=== PATIENT | female | born 1985 | race American Indian/Alaskan Native ===

== ENCOUNTER 2017-10-09 14:02 | Emergency (ER) | payer OTHER ==
[2017-10-09 14:14] VITALS: BP 117/72
[2017-10-09 15:25] LABS: Bacteria,Urine 1+ /HPF (Negative); Bilirubin,Urine NEG (Negative); Blood,Urine NEG (Negative); Color,Urine Yellow (Yellow); Protein,Urine <15 mg/dL mg/dL (Negative); Urobilinogen,Urine < 2.0 mg/dL (<2.0)
--- NOTE | 2017-10-09 15:27 | Emergency Department Report ---
ED General Adult HPI - General Chief complaint: Back Pain/Injury Stated complaint: LOWER BACK AND STOMACH CRAMPS Time Seen by Provider: 10/09/17 15:07 Source: patient Mode of arrival: Ambulatory Limitations: No Limitations - History of Present Illness Initial comments: This is a 32-year-old female presents to emergency room complaining of lower back pain which she's had in the past but says it's worse today. She is also complaining of lower abdominal cramping and she reports that she's had this in the past that her site which she had a a year 8 years ago. She said pain is been ongoing for 3-4 weeks. She doesn't have a primary care physician. No medication taken. Pain is 9 out of 10 to a abdomen and back and feels sore. No alleviating or exacerbating factor. Denies any nausea vomiting or fever or chills. Denies any numbness or team into extremities or any trauma. Denies any urinary burning, frequency or urgency. MD Complaint: lower back pain and lower abdominal cramping Onset/Timin -: week(s) Location: back, abdomen Radiation: non-radiation Severity scale (0 -10): 9 Quality: other (sore) Consistency: intermittent Improves with: none Worsens with: none Associated Symptoms: denies: confusion, chest pain, cough, diaphoresis, fever/ chills, headaches, loss of appetite, malaise, nausea/vomiting, rash, seizure, shortness of breath, syncope, weakness Treatments Prior to Arrival: none - Related Data Previous Rx's Medication Instructions Recorded Last Taken Type Brompheniramine/Pseudoephed/Dm 10 ml PO Q6H #120 syrup 06/04/15 Unknown Rx [Bromfed Dm Cough Syrup] Fluticasone [Flonase] 1 spray NS QDAY #1 bottle 06/04/15 Unknown Rx Ranitidine HCl [Zantac 150 MG TAB] 150 mg PO BID #60 tablet 07/15/15 Unknown Rx Ibuprofen [Motrin 800 MG tab] 800 mg PO Q8HR PRN #15 tablet 10/09/17 Unknown Rx Nitrofurantoin [place]/M-Cryst 100 mg PO Q12HR 7 Days #14 capsule 10/09/17 Unknown Rx [Macrobid CAP] Allergies Allergy/AdvReac Type Severity Reaction Status Date / Time No Known Allergies Allergy Verified 06/04/15 09:46 ED Review of Systems ROS: Stated complaint: LOWER BACK AND STOMACH CRAMPS Other details as noted in HPI Constitutional: denies: chills, fever Eyes: denies: eye pain, eye discharge, vision change Respiratory: denies: cough, shortness of breath, SOB with exertion, SOB at rest , wheezing Cardiovascular: denies: chest pain, palpitations, edema, syncope Gastrointestinal: abdominal pain. denies: nausea, vomiting, diarrhea, constipation, hematemesis, hematochezia Genitourinary: denies: urgency, dysuria, frequency, hematuria, discharge, dyspareunia Musculoskeletal: back pain. denies: joint swelling, arthralgia Skin: denies: rash, lesions Neurological: denies: headache, weakness, numbness, paresthesias, confusion, abnormal gait, vertigo ED Past Medical Hx - Past Medical History Previous Medical History?: Yes Hx Headaches / Migraines: Yes Hx Asthma: Yes Additional medical history: Anemia, morbid obesity - Surgical History Past Surgical History?: Yes Additional Surgical History: C-Sections x 5, Tubaligation - Family History Family history: hypertension - Social History Smoking Status: Never Smoker Substance Use Type: None - Medications Home Medications: Home Medications Medication Instructions Recorded Confirmed Last Taken Type Brompheniramine/Pseudoephed/Dm 10 ml PO Q6H #120 syrup 06/04/15 Unknown Rx [Bromfed Dm Cough Syrup] Fluticasone [Flonase] 1 spray NS QDAY #1 bottle 06/04/15 Unknown Rx Ranitidine HCl [Zantac 150 MG TAB] 150 mg PO BID #60 tablet 07/15/15 Unknown Rx Ibuprofen [Motrin 800 MG tab] 800 mg PO Q8HR PRN #15 tablet 10/09/17 Unknown Rx Nitrofurantoin [place]/M-Cryst 100 mg PO Q12HR 7 Days #14 capsule 10/09/17 Unknown Rx [Macrobid CAP] ED Physical Exam - General Limitations: No Limitations General appearance: alert, in no apparent distress - Head Head exam: Present: atraumatic, normocephalic, normal inspection - Eye Eye exam: Present: normal appearance, PERRL, EOMI Pupils: Present: normal accommodation - ENT ENT exam: Present: normal exam, normal orophraynx, mucous membranes moist - Neck Neck exam: Present: normal inspection, full ROM, other (no C-spine tenderness). Absent: tenderness, lymphadenopathy - Respiratory Respiratory exam: Present: normal lung sounds bilaterally. Absent: respiratory distress, chest wall tenderness - Cardiovascular Cardiovascular Exam: Present: regular rate, normal rhythm, normal heart sounds. Absent: systolic murmur, diastolic murmur - GI/Abdominal GI/Abdominal exam: Present: soft, normal bowel sounds, other (patient have scarred to suprapubic area that is healed without any signs of infection from previous .). Absent: distended, tenderness, guarding, rebound, rigid, organomegaly, mass, bruit, pulsatile mass, hernia - Extremities Exam Extremities exam: Present: normal inspection, full ROM, normal capillary refill , other (no clubbing, cyanosis or edema. Positive pulses all extremities and no neurovascular compromise). Absent: tenderness, pedal edema, joint swelling, calf tenderness - Back Exam Back exam: Present: normal inspection, full ROM, other (ambulates of any difficulties). Absent: tenderness, CVA tenderness (R), CVA tenderness (L), muscle spasm, paraspinal tenderness, vertebral tenderness, rash noted - Expanded Back Exam Expanded Back exam: Absent: saddle anesthesia Back exam: Negative Straight Leg Raising: Left, Right - Neurological Exam Neurological exam: Present: alert, oriented X3, normal gait, reflexes normal. Absent: motor sensory deficit - Expanded Neurological Exam Expanded Neurological exam: Absent: innattentive, memory loss-remote event, memory loss- recent event, ataxia, receptive aphasia, expressive aphasia, total aphasia, tremor, protecting the airway Patient oriented to: Present: person, place, time Speech: Present: fluid speech Cranial nerves: EOM's Intact: Normal, Gag Reflex: Normal, Tongue Deviation: Normal, Nystagmus: Normal, Facial Sensation: Normal Cerebellar function: Romberg: Normal Upper motor neuron: Pronator Drift: Normal, Sensory Extinction: Normal Sensory exam: Lower Extremity Light Touch: Normal, Lower Extremity Pin Prick: Normal, Lower Extremity Temperature: Normal, LE 2 Point Discrimination: Normal Motor strength exam: RUE: 5, LUE: 5, RLE: 5, LLE: 5 Best Eye Response (Emily): (4) open spontaneously Best Motor Response ([place]): (6) obeys commands Best Verbal Response (Emily): (5) oriented [place] Total: 15 - Psychiatric Psychiatric exam: Present: normal affect, normal mood - Skin Skin exam: Present: warm, dry, intact, normal color. Absent: rash ED Course Vital Signs 10/09/17 14:10 Temperature 98.5 F Pulse Rate 84 Blood Pressure 117/72 O2 Sat by Pulse 98 Oximetry - Reevaluation(s) Reevaluation #1: 10/09/17 15:30 Patient given Motrin 800 mg by mouth for back pain and awaiting urinalysis and urine test. Reevaluation #2: 10/09/17 16:24 She voiced relief of pain after Motrin. ED Medical Decision Making - Lab Data Lab Results 10/09/17 Range/Units 14:45 Urine Color Yellow (Yellow) Urine Turbidity Clear (Clear) Urine pH 6.0 (5.0-7.0) Ur Specific [place] 1.014 (1.003-1.030) Urine Protein <15 mg/dl (Negative) mg/dL Urine Glucose (UA) Neg (Negative) mg/dL Urine Ketones Neg (Negative) mg/dL Urine Blood Neg (Negative) Urine Nitrite Neg (Negative) Urine Bilirubin Neg (Negative) Urine Urobilinogen < 2.0 (<2.0) mg/dL Ur Leukocyte Esterase Sm (Negative) Urine WBC (Auto) 4.0 (0.0-6.0) /HPF Urine RBC (Auto) 4.0 (0.0-6.0) /HPF U Epithel Cells (Auto) 1.0 (0-13.0) /HPF Urine Bacteria (Auto) 1+ (Negative) /HPF Urine HCG, Qual Negative (Negative) Urine culture sent and pending - Medical Decision Making Patient has been evaluated by this provider in fast track and the signs have normal exam to include back and abdomen. She has scar from 8 years ago which does not show any sign of infection. Patient was given ibuprofen for the pain to lower back and abdomen and she forcibly from pain.. urinalysis showed small amount of leukocyte esterase with bacteria. Urine culture sent. urine test negative A/P 1: Acute Cystitis without hematuria-UA positive leukocyte esterase and bacteria. Patient will be started on Macrobid 2: Acute lower back pain-patient given Motrin 800 mg by mouth in emergency room initially with her pain. We will send home and Motrin. 3-lower abdominal pain-relieved. test negative Patient educated on diagnosis, medication, treatment plan and to follow up with primary care physician. She was understanding. Patient discharged home in stable condition with prescriptions for Motrin and Macrobid and to follow up with her primary care physician in 4 days. I discussed very for her condition worsens to return to emergency room and she voiced understanding. Vital signs are stable she is afebrile and she reports that she is feeling better. Pain is controlled. Critical care attestation.: If time is entered above; I have spent that time in minutes in the direct care of this critically ill patient, excluding procedure time. ED Disposition Clinical Impression: Acute cystitis without hematuria, Bilateral lower abdominal cramping Pain in lower back Qualifiers: Chronicity: acute Back pain laterality: bilateral Sciatica presence: without sciatica Qualified Code(s): M54.5 - Low back pain Disposition: - TO HOME OR SELFCARE Is pt being admited?: No Does the pt Need Aspirin: No Condition: Stable Instructions: Acute Abdominal Pain (ED), Acute Low Back Pain (ED), Urinary Tract Infection in Women (ED) Additional Instructions: Please increase fluid intake to 2-3 L of water or cranberry juice daily The medication as prescribed Take Motrin as food to prevent irritation to stomach lining Follow-up with primary care physician and 4 days Return to the emergency room, if his symptoms worsen Prescriptions: Ibuprofen [Motrin 800 MG tab] 800 mg PO Q8HR PRN #15 tablet PRN Reason: pain Nitrofurantoin [place]/M-Cryst [Macrobid CAP] 100 mg PO Q12HR 7 Days #14 capsule Referrals: [facility] [Outside] - 10/13/17 Forms: Work/School Release Form(ED)
[2017-10-09] MEDS ORDERED: MOTRIN PO ONE (15:29)
[2017-10-09 15:33] LABS: HCG Qualitative,Urine Negative (Negative)
== END 2017-10-09 16:40 | disposition home or self-care (01) ==
LOC: ED 14:02
DX: N30.00 Acute cystitis without hematuria (principal); G43.909 Migraine, unspecified, not intractable, without status migrainosus; J45.909 Unspecified asthma, uncomplicated; E66.01 Morbid (severe) obesity due to excess calories; Z86.2 Personal history of diseases of the blood and blood-forming organs and certain disorders involving the immune mechanism; Z98.51 Tubal ligation status; Z68.43 Body mass index [BMI] 50.0-59.9, adult; Z79.899 Other long term (current) drug therapy
CPT/HCPCS: 81001; 81025; 87086; 99283

== ENCOUNTER 2018-12-05 00:47 | Emergency (ER) | payer SELFPAY ==
[2018-12-05 00:53] VITALS: BP 133/88
[2018-12-05] MEDS ORDERED: DELTASONE PO ONE (02:30)
[2018-12-05] MEDS ORDERED: IBUPROFEN PO ONE (02:30)
--- NOTE | 2018-12-05 02:38 | Emergency Department Report ---
- General Chief Complaint: Upper Respiratory Infection Stated Complaint: COLD SYMPTOMS, BODY ACHES Time Seen by Provider: 12/05/18 02:32 Source: patient Mode of arrival: Ambulatory Limitations: No Limitations - History of Present Illness Initial Comments: Patient is a 33 yo AA female with no past medical history who presents to the ED with c/o acute onset persistent sore throat, dysphagia, nasal and sinus congestion, dry cough and diffuse body aches x 1 week, worse in the last 2 days. Patient states that she has been taking OTC remedies with no relief. Patient denies dyspnea, nausea, vomiting, dizziness, chest pain, headache, abdominal pain, fever and chills, diarrhea and back pain or dysuria. MD Complaint: cough, sore throat, rhinorrhea, nasal congestion, sinus pain -: Sudden, days(s) (3) Severity: severe Severity scale (0 -10): 7 Quality: sharp, aching Consistency: constant Improves With: nothing Worsens With: nothing Context: sick contacts Associated Symptoms: denies other symptoms, myalgias, headache, rhinorrhea, nasal congestion, sore throat, cough. denies: fever, stiff neck, chest pain, shortness of breath, abdominal pain, nausea, vomiting, diarrhea, dysuria, rash, confusion, weight loss, epistaxis, hoarseness, ear pain, other - Related Data Previous Rx's Medication Instructions Recorded Last Taken Type Brompheniramine/Pseudoephed/Dm 10 ml PO Q6H #120 syrup 06/04/15 Unknown Rx [Bromfed Dm Cough Syrup] Fluticasone [Flonase] 1 spray NS QDAY #1 bottle 06/04/15 Unknown Rx raNITIdine HCl [Zantac 150 MG TAB] 150 mg PO BID #60 tablet 07/15/15 Unknown Rx Ibuprofen [Motrin 800 MG tab] 800 mg PO Q8HR PRN #15 tablet 10/09/17 Unknown Rx Nitrofurantoin [place]/M-Cryst 100 mg PO Q12HR 7 Days #14 capsule 10/09/17 Unknown Rx [Macrobid CAP] Amoxicillin [Trimox CAP] 500 mg PO Q8H #30 capsule 12/05/18 Unknown Rx Benzonatate [Tessalon Perles] 100 mg PO Q8HR #30 capsule 12/05/18 Unknown Rx Cetirizine HCl [Zyrtec 10mg tab] 10 mg PO DAILY #30 tablet 12/05/18 Unknown Rx Ibuprofen [Motrin] 800 mg PO Q8HR PRN #24 tablet 12/05/18 Unknown Rx methylPREDNISolone [Medrol 4MG 4 mg PO DAILY #21 tab.ds.pk 12/05/18 Unknown Rx DOSEPAK (21 tabs)] Allergies Allergy/AdvReac Type Severity Reaction Status Date / Time No Known Allergies Allergy Verified 06/04/15 09:46 ED Review of Systems ROS: Stated complaint: COLD SYMPTOMS, BODY ACHES Other details as noted in HPI Constitutional: denies: chills, fever Eyes: denies: eye pain, eye discharge, vision change ENT: throat pain, congestion, other (frontal sinus pressure). denies: ear pain Respiratory: cough. denies: shortness of breath, wheezing Cardiovascular: denies: chest pain, palpitations Endocrine: no symptoms reported Gastrointestinal: denies: abdominal pain, nausea, diarrhea Genitourinary: denies: urgency, dysuria, discharge Musculoskeletal: arthralgia, myalgia. denies: joint swelling Skin: denies: rash, lesions Neurological: headache. denies: weakness, paresthesias Psychiatric: denies: anxiety, depression Hematological/Lymphatic: denies: easy bleeding, easy bruising ED Past Medical Hx - Past Medical History Hx Headaches / Migraines: Yes Hx Asthma: Yes Additional medical history: Anemia, morbid obesity - Surgical History Past Surgical History?: Yes Additional Surgical History: C-Sections x 5, Tubaligation - Social History Smoking Status: Never Smoker Substance Use Type: None - Medications Home Medications: Home Medications Medication Instructions Recorded Confirmed Last Taken Type Brompheniramine/Pseudoephed/Dm 10 ml PO Q6H #120 syrup 06/04/15 Unknown Rx [Bromfed Dm Cough Syrup] Fluticasone [Flonase] 1 spray NS QDAY #1 bottle 06/04/15 Unknown Rx raNITIdine HCl [Zantac 150 MG TAB] 150 mg PO BID #60 tablet 07/15/15 Unknown Rx Ibuprofen [Motrin 800 MG tab] 800 mg PO Q8HR PRN #15 tablet 10/09/17 Unknown Rx Nitrofurantoin [place]/M-Cryst 100 mg PO Q12HR 7 Days #14 capsule 10/09/17 Unknown Rx [Macrobid CAP] Amoxicillin [Trimox CAP] 500 mg PO Q8H #30 capsule 12/05/18 Unknown Rx Benzonatate [Tessalon Perles] 100 mg PO Q8HR #30 capsule 12/05/18 Unknown Rx Cetirizine HCl [Zyrtec 10mg tab] 10 mg PO DAILY #30 tablet 12/05/18 Unknown Rx Ibuprofen [Motrin] 800 mg PO Q8HR PRN #24 tablet 12/05/18 Unknown Rx methylPREDNISolone [Medrol 4MG 4 mg PO DAILY #21 tab.ds.pk 12/05/18 Unknown Rx DOSEPAK (21 tabs)] ED Physical Exam - General Limitations: No Limitations General appearance: alert, in no apparent distress - Head Head exam: Present: atraumatic, normocephalic, normal inspection - Eye Eye exam: Present: normal appearance, PERRL, EOMI Pupils: Present: normal accommodation - ENT ENT exam: Present: normal exam, mucous membranes moist, TM's normal bilaterally, normal external ear exam, other (Grossly congested nasal passages; Palpable frontal sinus tenderness; erythematous oropharynx) - Neck Neck exam: Present: normal inspection, full ROM, lymphadenopathy. Absent: tenderness, meningismus, thyromegaly - Respiratory Respiratory exam: Present: normal lung sounds bilaterally. Absent: respiratory distress, wheezes, rales, rhonchi, stridor, chest wall tenderness, accessory muscle use, decreased breath sounds, prolonged expiratory - Cardiovascular Cardiovascular Exam: Present: regular rate, normal rhythm, normal heart sounds. Absent: systolic murmur, diastolic murmur, rubs, gallop - GI/Abdominal GI/Abdominal exam: Present: soft, normal bowel sounds. Absent: tenderness, guarding, rebound, hyperactive bowel sounds, hypoactive bowel sounds, organomegaly - Rectal Rectal exam: Present: deferred - Extremities Exam Extremities exam: Present: normal inspection, full ROM, normal capillary refill - Back Exam Back exam: Present: normal inspection, full ROM. Absent: tenderness, CVA tenderness (R), CVA tenderness (L), muscle spasm, paraspinal tenderness - Neurological Exam Neurological exam: Present: alert, oriented X3, CN II-XII intact, normal gait, reflexes normal - Psychiatric Psychiatric exam: Present: normal affect, normal mood - Skin Skin exam: Present: warm, dry, intact, normal color. Absent: rash ED Course Vital Signs 12/05/18 00:51 Temperature 98.5 F Pulse Rate 86 Respiratory 20 Rate Blood Pressure 133/88 O2 Sat by Pulse 98 Oximetry - Reevaluation(s) Reevaluation #1: 12/05/18 02:40. 33-year-old female who presents to ED with nasal and sinus congestion, frontal sinus pressure and headache and sore throat with dry cough and diffuse body aches and pains for the last 3 days. In the ED, patient is alert and oriented 3 and is not in distress. Vital signs are stable. Physical exam reveals frontal sinus tenderness, erythematous oropharynx and was congested nasal passages. Patient was treated for pain in the ED and was discharged home on medications and advised to follow-up with her primary care physician in 7-10 days for reevaluation or return to the ED immediately if symptoms get worse. ED Medical Decision Making - Medical Decision Making 33-year-old female who presents to ED with nasal and sinus congestion, frontal sinus pressure and headache and sore throat with dry cough and diffuse body aches and pains for the last 3 days. In the ED, patient is alert and oriented 3 and is not in distress. Vital signs are stable. Physical exam reveals frontal sinus tenderness, erythematous oropharynx and was congested nasal passages. Patient was treated for pain in the ED and was discharged home on medications and advised to follow-up with her primary care physician in 7-10 days for reevaluation or return to the ED immediately if symptoms get worse. - Differential Diagnosis Acute URI; Pharyngitis; Sinusitis; Acute bronchitis Critical care attestation.: If time is entered above; I have spent that time in minutes in the direct care of this critically ill patient, excluding procedure time. ED Disposition Clinical Impression: Acute upper respiratory infection Acute pharyngitis Qualifiers: Pharyngitis/tonsillitis etiology: other specified organisms Qualified Code(s): J02.8 - Acute pharyngitis due to other specified organisms Acute frontal sinusitis Qualifiers: Recurrence: non-recurrent Qualified Code(s): J01.10 - Acute frontal sinusitis, unspecified Acute bronchitis Qualifiers: Bronchitis organism: other organism Qualified Code(s): J20.8 - Acute bronchitis due to other specified organisms Disposition: - TO HOME OR SELFCARE Is pt being admited?: No Does the pt Need Aspirin: No Condition: Stable Instructions: Acute Bronchitis (ED), Acute Bacterial Rhinosinusitis (ED), Pharyngitis (ED), Upper Respiratory Infection (ED) Additional Instructions: Take medications with food, drink plenty of fluids and follow-up with your primary care physician in 5-7 days for reevaluation. Return to the ED immediately if symptoms get worse. Prescriptions: methylPREDNISolone [Medrol 4MG DOSEPAK (21 tabs)] 4 mg PO DAILY #21 tab.ds.pk Ibuprofen [Motrin] 800 mg PO Q8HR PRN #24 tablet PRN Reason: Pain , Severe (7-10) Benzonatate [Tessalon Perles] 100 mg PO Q8HR #30 capsule Amoxicillin [Trimox CAP] 500 mg PO Q8H #30 capsule Cetirizine HCl [Zyrtec 10mg tab] 10 mg PO DAILY #30 tablet Referrals: [facility] [Outside] - 3-5 Days Time of Disposition: 02:44 Print Language: FRENCH
== END 2018-12-05 04:07 | disposition home or self-care (01) ==
LOC: ED 00:47
DX: J02.9 Acute pharyngitis, unspecified (principal); J01.10 Acute frontal sinusitis, unspecified; J20.9 Acute bronchitis, unspecified; G43.909 Migraine, unspecified, not intractable, without status migrainosus; J45.909 Unspecified asthma, uncomplicated; E66.01 Morbid (severe) obesity due to excess calories; Z68.43 Body mass index [BMI] 50.0-59.9, adult; Z86.2 Personal history of diseases of the blood and blood-forming organs and certain disorders involving the immune mechanism; Z98.51 Tubal ligation status; Z79.899 Other long term (current) drug therapy; Z79.1 Long term (current) use of non-steroidal anti-inflammatories (NSAID)
CPT/HCPCS: 99282; J7512

== ENCOUNTER 2019-06-10 18:13 | Emergency (ER) | payer SELFPAY ==
--- NOTE | 2019-06-10 22:02 | Emergency Department Report ---
Blank Doc - Documentation Documentation: 34-year-old female that presents with chest pain and SOB. This initial assessment/diagnostic orders/clinical plan/treatment(s) is/are subject to change based on patient's health status, clinical progression and re- assessment by fellow clinical providers in the ED. Further treatment and workup at subsequent clinical providers discretion. Patient/guardians urged not to elope from the ED as their condition may be serious if not clinically assessed and managed. Initial orders include: 1- Patient sent to [facility] for further evaluation and treatment 2- ekg 3- cXR
--- NOTE | 2019-06-10 22:50 | XRay Report ---
CHEST 2 VIEWS INDICATION / CLINICAL INFORMATION: Chest pain. Headache. Shortness of breath. Cough. COMPARISON: Acute abdominal series from 11/13/2014. FINDINGS: SUPPORT DEVICES: None. HEART / MEDIASTINUM: No significant abnormality. LUNGS / PLEURA: No significant pulmonary or pleural abnormality. No pneumothorax. ADDITIONAL FINDINGS: No significant additional findings. IMPRESSION: 1. No acute abnormality of the chest. Signer Name: Benjamin Perera MD Signed: 06/10/2019 10:45 PM Workstation Name: [id number]
--- NOTE | 2019-06-10 23:33 | Emergency Department Report ---
ED Shortness of Breath HPI - General Chief Complaint: Dyspnea/Respdistress Stated Complaint: CP/HEADACHE/ Time Seen by Provider: 06/10/19 22:02 Source: patient Mode of arrival: Ambulatory Limitations: No Limitations - History of Present Illness Initial Comments: 34-year-old female with history of asthma presents to ED with complaint of chest pain for several months, and cough and shortness of breath x6 days. Patient reports dry cough. Denies wheezing. Denies chest pain at this time. Patient also denies fever, exposure to known COVID positive patients, or recent travel. Patient does report her daughters have been sick with URI symptoms. However they have also not traveled or been exposed to any known COVID positive patients. Patient denies leg pain or swelling. MD Complaint: shortness of breath, cough -: days(s) (6) Severity: mild Consistency: intermittent Improves With: nothing Worsens With: nothing Known History Of: asthma Associated Symptoms: cough Treatments Prior to Arrival: other (OTC meds) - Related Data Previous Rx's Medication Instructions Recorded Last Taken Type Brompheniramine/Pseudoephed/Dm 10 ml PO Q6H #120 syrup 06/04/15 Unknown Rx [Bromfed Dm Cough Syrup] Fluticasone [Flonase] 1 spray NS QDAY #1 bottle 06/04/15 Unknown Rx raNITIdine HCl [Zantac 150 MG TAB] 150 mg PO BID #60 tablet 07/15/15 Unknown Rx Ibuprofen [Motrin 800 MG tab] 800 mg PO Q8HR PRN #15 tablet 10/09/17 Unknown Rx Nitrofurantoin Mower/M-Cryst 100 mg PO Q12HR 7 Days #14 capsule 10/09/17 Unknown Rx [Macrobid CAP] Amoxicillin [Trimox CAP] 500 mg PO Q8H #30 capsule 12/05/18 Unknown Rx Benzonatate [Tessalon Perles] 100 mg PO Q8HR #30 capsule 12/05/18 Unknown Rx Cetirizine HCl [Zyrtec 10mg tab] 10 mg PO DAILY #30 tablet 12/05/18 Unknown Rx Ibuprofen [Motrin] 800 mg PO Q8HR PRN #24 tablet 12/05/18 Unknown Rx methylPREDNISolone [Medrol 4MG 4 mg PO DAILY #21 tab.ds.pk 12/05/18 Unknown Rx DOSEPAK (21 tabs)] Albuterol Sulfate [Proventil Hfa] 2 puff IH Q4HR PRN #1 hfa.aer.ad 06/10/19 Unknown Rx Benzonatate [Tessalon Perles] 100 mg PO Q8HR PRN #20 capsule 06/10/19 Unknown Rx Allergies Allergy/AdvReac Type Severity Reaction Status Date / Time No Known Allergies Allergy Verified 06/04/15 09:46 ED Review of Systems ROS: Stated complaint: CP/HEADACHE/ Other details as noted in HPI Comment: All other systems reviewed and negative Constitutional: denies: chills, fever ENT: denies: throat pain Respiratory: cough, shortness of breath Cardiovascular: chest pain Gastrointestinal: denies: nausea, vomiting Musculoskeletal: other (denies leg pain or swelling) ED Past Medical Hx - Past Medical History Previous Medical History?: Yes Hx Headaches / Migraines: Yes Hx Asthma: Yes Additional medical history: Anemia, morbid obesity - Surgical History Past Surgical History?: Yes Additional Surgical History: C-Sections x 5, Tubaligation - Social History Smoking Status: Never Smoker Substance Use Type: None - Medications Home Medications: Home Medications Medication Instructions Recorded Confirmed Last Taken Type Brompheniramine/Pseudoephed/Dm 10 ml PO Q6H #120 syrup 06/04/15 Unknown Rx [Bromfed Dm Cough Syrup] Fluticasone [Flonase] 1 spray NS QDAY #1 bottle 06/04/15 Unknown Rx raNITIdine HCl [Zantac 150 MG TAB] 150 mg PO BID #60 tablet 07/15/15 Unknown Rx Ibuprofen [Motrin 800 MG tab] 800 mg PO Q8HR PRN #15 tablet 10/09/17 Unknown Rx Nitrofurantoin Mower/M-Cryst 100 mg PO Q12HR 7 Days #14 capsule 10/09/17 Unknown Rx [Macrobid CAP] Amoxicillin [Trimox CAP] 500 mg PO Q8H #30 capsule 12/05/18 Unknown Rx Benzonatate [Tessalon Perles] 100 mg PO Q8HR #30 capsule 12/05/18 Unknown Rx Cetirizine HCl [Zyrtec 10mg tab] 10 mg PO DAILY #30 tablet 12/05/18 Unknown Rx Ibuprofen [Motrin] 800 mg PO Q8HR PRN #24 tablet 12/05/18 Unknown Rx methylPREDNISolone [Medrol 4MG 4 mg PO DAILY #21 tab.ds.pk 12/05/18 Unknown Rx DOSEPAK (21 tabs)] Albuterol Sulfate [Proventil Hfa] 2 puff IH Q4HR PRN #1 hfa.aer.ad 06/10/19 Unknown Rx Benzonatate [Tessalon Perles] 100 mg PO Q8HR PRN #20 capsule 06/10/19 Unknown Rx ED Physical Exam - General Limitations: No Limitations ED Course Vital Signs 06/10/19 06/10/19 19:18 23:40 Temperature 98.9 F 97.9 F Pulse Rate 77 79 Respiratory 20 14 Rate Blood Pressure 142/76 Blood Pressure 109/75 [Left] O2 Sat by Pulse 97 Oximetry ED Medical Decision Making - EKG Data -: EKG Interpreted by [place] EKG shows normal: sinus rhythm, axis, intervals, QRS complexes, ST-T waves Rate: normal - EKG Data Interpretation: no acute changes - Radiology Data Radiology results: report reviewed, image reviewed - Medical Decision Making - pt afebrile; remainder of vitals normal - CXR unremarkable - no resp distress, O2 sats normal - will d/c home - outpt f/u advised - Differential Diagnosis CHF, URI, ACS, pneumonia Critical care attestation.: If time is entered above; I have spent that time in minutes in the direct care of this critically ill patient, excluding procedure time. ED Disposition Clinical Impression: Chest pain, Cough Disposition: DC-01 TO HOME OR SELFCARE Is pt being admited?: No Condition: Stable Instructions: Chest Pain (ED), Upper Respiratory Infection (ED) Prescriptions: Albuterol Sulfate [Proventil Hfa] 2 puff IH Q4HR PRN #1 hfa.aer.ad PRN Reason: Wheezing Benzonatate [Tessalon Perles] 100 mg PO Q8HR PRN #20 capsule PRN Reason: Cough Referrals: PRIMARY CARE, [Primary Care Provider] - 3-5 Days [facility] [Provider Group] - 3-5 Days Forms: Work/School Release Form(ED) Time of Disposition: 23:36
[2019-06-11 01:09] VITALS: BP 109/75
== END 2019-06-11 | disposition home or self-care (01) ==
LOC: ED 18:13
DX: R07.89 Other chest pain (principal); R05 Cough
CPT/HCPCS: 71046; 93005; 93010; 99283

== ENCOUNTER 2020-12-27 11:00 | Emergency (ER) | payer OTHER ==
[2020-12-27 11:19] VITALS: BP 128/69
[2020-12-27] MEDS ORDERED: BUTALB/ACETAMINOPHEN/CAFFEINE TAB PO ONE (14:12)
--- NOTE | 2020-12-27 14:13 | Emergency Department Report ---
ED Headache HPI - General Chief Complaint: Headache Stated Complaint: HEADACHE X 2 MONTHS Time Seen by Provider: 12/27/20 13:53 Source: patient, old records Exam Limitations: no limitations - History of Present Illness Initial Comments: 35-year-old female with a past medical history of asthma and a history of obesity presents to the ER today with complaints of headache. Patient reports that she been having a diffuse headache daily which she has been having for the past 2 months. She states that it has been a constant pain and she describes it as sharp. She states that light seems to make the headache worse, but she does get relief of the headache when she takes Advil PM and goes to sleep at night. Patient states that she has not seen her primary care doctor nor a neurologist for headaches. She denies any recent head injuries. She states that in the past week she has been having associated dizziness and lightheadedness. She describes it as when she moves from a sitting to a standing position while she is driving she gets dizzy and feels like the room is spinning. She also reports feeling generally weak this past week. She denies any nausea, vomiting, neck pain, fever, chills, runny nose, nasal congestion, cough, chest pain, shortness of breath focal weakness, vision change, speech changes or any additional symptoms at this time. OFF NOTE:patient has been seen here for headaches in the past. She had a CT of her head in 2014 which showed ethmoid sinusitis. Timing/Duration: constant, other (Chronic x 2 months ) Quality: constant, sharp Head Injury Location: global Allergies/Adverse Reactions: Allergies No Known Allergies Allergy (Verified 12/27/20 11:19) Home Medications: Ambulatory Orders raNITIdine HCl [Zantac 150 MG TAB] 150 mg PO BID #60 tablet 07/15/15 Albuterol Sulfate [Proventil Hfa] 2 puff IH Q4HR PRN #1 hfa.aer.ad 06/10/19 Butalb/Acetamin/Caff 50-325-40 [Fioricet 50-325-40] 1 each PO Q4H PRN #15 tablet 12/27/20 Fluticasone [Flonase] 2 spray NS QDAY #1 bottle 12/27/20 Loratadine [Claritin] 10 mg PO DAILY #30 tablet 12/27/20 Meclizine [Antivert] 25 mg PO TID PRN #20 tablet 12/27/20 ED Review of Systems ROS: Stated complaint: HEADACHE X 2 MONTHS Other details as noted in HPI Comment: All other systems reviewed and negative Constitutional: denies: chills, fever Eyes: denies: eye pain, eye discharge, vision change ENT: denies: ear pain, throat pain, dental pain, hearing loss, epistaxis, congestion Respiratory: denies: cough, shortness of breath, wheezing Cardiovascular: denies: chest pain, palpitations Gastrointestinal: denies: abdominal pain, nausea, vomiting, diarrhea, constipation, hematemesis, melena, hematochezia Genitourinary: denies: urgency, dysuria, discharge, abnormal menses, dyspareunia Musculoskeletal: denies: back pain, joint swelling, arthralgia Skin: denies: rash, lesions Neurological: headache, weakness, vertigo. denies: numbness, paresthesias, confusion, abnormal gait Psychiatric: denies: anxiety, depression, auditory hallucinations, visual hallucinations, homicidal thoughts, suicidal thoughts Hematological/Lymphatic: denies: easy bleeding, easy bruising, swollen glands ED Past Medical Hx - Past Medical History Hx Headaches / Migraines: Yes Hx Asthma: Yes Additional medical history: Anemia, morbid obesity - Surgical History Additional Surgical History: C-Sections x 5, Tubaligation - Social History Smoking Status: Never Smoker Substance Use Type: None - Medications Home Medications: Home Medications Medication Instructions Recorded Confirmed Last Taken Type raNITIdine HCl [Zantac 150 MG TAB] 150 mg PO BID #60 tablet 07/15/15 Unknown Rx Albuterol Sulfate [Proventil Hfa] 2 puff IH Q4HR PRN #1 hfa.aer.ad 06/10/19 Unknown Rx Butalb/Acetamin/Caff 50-325-40 1 each PO Q4H PRN #15 tablet 12/27/20 Unknown Rx [Fioricet 50-325-40] Fluticasone [Flonase] 2 spray NS QDAY #1 bottle 12/27/20 Unknown Rx Loratadine [Claritin] 10 mg PO DAILY #30 tablet 12/27/20 Unknown Rx Meclizine [Antivert] 25 mg PO TID PRN #20 tablet 12/27/20 Unknown Rx ED Physical Exam - General Limitations: No Limitations General appearance: alert, in no apparent distress, obese - Head Head exam: Present: atraumatic, normocephalic, normal inspection - Eye Eye exam: Present: normal appearance, PERRL, EOMI Pupils: Present: normal accommodation - ENT ENT exam: Present: normal exam, mucous membranes moist, other (Tenderness to palpation to the frontal sinuses bilaterally) - Expanded ENT Exam Expanded TM/Canal exam: Effusion: Right TM, Left TM Mouth exam: Present: normal external inspection Teeth exam: Present: normal inspection - Neck Neck exam: Present: normal inspection, full ROM. Absent: meningismus - Respiratory Respiratory exam: Present: normal lung sounds bilaterally. Absent: respiratory distress, wheezes, rales, rhonchi - Cardiovascular Cardiovascular Exam: Present: regular rate, normal rhythm, normal heart sounds - GI/Abdominal GI/Abdominal exam: Present: soft. Absent: tenderness, guarding, rebound, rigid - Neurological Exam Neurological exam: Present: alert, oriented X3, CN II-XII intact, normal gait. Absent: motor sensory deficit - Psychiatric Psychiatric exam: Present: normal affect, normal mood - Skin Skin exam: Present: intact ED Course Vital Signs 12/27/20 11:18 Temperature 98.9 F Pulse Rate 65 Respiratory 18 Rate Blood Pressure 128/69 [Left] O2 Sat by Pulse 100 Oximetry ED Medical Decision Making - Lab Data Result diagrams: 12/27/20 14:22 12/27/20 14:22 - Medical Decision Making 1705: All labs reviewed and unremarkable. EKG shows no STEMI, ischemic changes or any significant dysrhythmias. Patient currently sitting up in the recliner, on her phone, not in any acute distress. She is not toxic or ill-appearing. She is neurologically intact with a normal gait. She has no meningeal signs on exam.The history, exam, diagnostic testing and the patient's current condition does not suggest meningitis, stroke, sepsis, subarachnoid hemorrhage, intracranial bleeding, encephalitis, PE, unstable angina, CT or other significant pathology to warrant further testing, continued ED treatment, admission, neurological consultation or other specialist evaluation at this point. Patient does have fluid behind the eardrum which could be contributing to her dizziness. She will be prescribed Flonase and antihistamines to help with that, she also be given meclizine to help with her dizziness and Fioricet for headache. I did discuss results with patient, and suspected diagnosis with patient and I did recommend follow-up with neurologist for outpatient MRI for further evaluation of her headaches. Patient expressed understanding of all instructions and agree with plan. Patient stable at time of discharge Critical care attestation.: If time is entered above; I have spent that time in minutes in the direct care of this critically ill patient, excluding procedure time. ED Disposition Clinical Impression: Chronic headache, Vertigo, Eustachian tube dysfunction Disposition: 01 HOME / SELF CARE / HOMELESS Is pt being admited?: No Does the pt Need Aspirin: No Condition: Stable Instructions: Eustachian Tube Dysfunction, General Headache Without Cause, Dizziness, [id number] Additional Instructions: I recommend that you take the Fioricet as prescribed to help with your headache. I also recommend taking the Flonase and using the Zyrtec, to help because you do have some fluid behind the eardrum which can be contributing to your dizziness and also your headache could also be related to sinuses. Take the meclizine as prescribed to help with dizziness. I still do recommend you follow-up with your primary care doctor for referral to neurology for additional evaluation including an MRI to further work-up your headache. Drink lots of fluids. Return to the ER if your symptoms changes or worsens in any way. Prescriptions: Meclizine [Antivert] 25 mg PO TID PRN #20 tablet PRN Reason: Vertigo/dizzy Loratadine [Claritin] 10 mg PO DAILY #30 tablet Butalb/Acetamin/Caff 50-325-40 [Fioricet 50-325-40] 1 each PO Q4H PRN #15 tablet PRN Reason: Headache Fluticasone [Flonase] 2 spray NS QDAY #1 bottle Referrals: [facility] [Provider Group] - 3-5 Days (Primary Care physician ) [facility] [Provider Group] - 3-5 Days ( [address] [place] [address] [address], [place] [address] ) Forms: Work/School Release Form(ED) Time of Disposition: 16:52 Print Language: WELSH
[2020-12-27 14:47] LABS: Hematocrit 33.8 % (30.3-42.9); Hemoglobin 10.7 gm/dl (10.1-14.3); Mean Corpuscular HGB Conc 32 % (30-34); Mean Corpuscular Volume 71 fl (79-97); Platelet Count 278 K/mm3 (140-440); Red Blood Count 4.74 M/mm3 (3.65-5.03)
[2020-12-27 15:10] LABS: Alanine Aminotransferase 10 units/L (7-56); Albumin 3.5 g/dL (3.9-5); Blood Urea Nitrogen 7 mg/dL (7-17); Calcium 9.2 mg/dL (8.4-10.2); Hemolysis Index 0
[2020-12-27 15:16] LABS: BUN/Creatinine Ratio 10
[2020-12-27 16:15] LABS: Bilirubin,Urine NEG (Negative); Blood,Urine NEG (Negative); Color,Urine Yellow (Yellow); Mucus,Urine FEW /HPF; Protein,Urine <15 mg/dL mg/dL (Negative)
[2020-12-27 17:00] LABS: Eosinophils % (Manual) 1.4 % (0.0-4.3); Total Cells Counted 71
[2020-12-27 17:01] LABS: Platelet Estimate Consistent w Auto; RBC Morphology Normal
--- NOTE | 2021-01-01 14:21 | Electrocardiograph Report ---
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
== END 2020-12-27 17:30 | disposition home or self-care (01) ==
LOC: ED 11:00
DX: G89.29 Other chronic pain (principal); G43.909 Migraine, unspecified, not intractable, without status migrainosus; H68.103 Unspecified obstruction of Eustachian tube, bilateral; Z98.51 Tubal ligation status; Z98.890 Other specified postprocedural states; Z86.2 Personal history of diseases of the blood and blood-forming organs and certain disorders involving the immune mechanism; Z79.899 Other long term (current) drug therapy
CPT/HCPCS: 36415; 80053; 81001; 83735; 84703; 85007; 85025; 93005; 99283

== ENCOUNTER 2021-09-04 08:12 | Emergency (ER) | payer SELFPAY ==
[2021-09-04 08:42] VITALS: BP 114/81
--- NOTE | 2021-09-04 11:21 | XRay Report ---
CHEST 2 VIEWS INDICATION / CLINICAL INFORMATION: cough. COMPARISON: 06/10/2019 FINDINGS: SUPPORT DEVICES: None. HEART / MEDIASTINUM: No significant abnormality. LUNGS / PLEURA: No significant pulmonary or pleural abnormality. No pneumothorax. ADDITIONAL FINDINGS: No significant additional findings. IMPRESSION: 1. No acute findings. Signer Name: Demond Johnson MD Signed: 09/04/2021 11:17 AM Workstation Name: [employer]ue App
[2021-09-04] MEDS ORDERED: BENZONATATE 100 MG CAP PO ONE (13:10)
--- NOTE | 2021-09-04 14:02 | Emergency Department Report ---
- General Chief Complaint: Upper Respiratory Infection Stated Complaint: BODY PAIN/CHILLS Time Seen by Provider: 09/04/21 12:17 Source: patient Mode of arrival: Ambulatory Limitations: No Limitations - History of Present Illness Initial Comments: This is a 36-year-old female nontoxic, well nourished in appearance, no acute signs of distress presents to the ED with c/o of productive cough, rhinorrhea, nasal congestion x several days. Patient describes productive cough as yellow mucus production. Patient denies any sick contacts. Patient denies any recent travels, long car, recent hospital stays. Patient denies any calf pain or calf tenderness. Patient denies any chest pain, short of breath, fever, chills, nausea, vomiting, hemoptysis, numbness, tingling, headache or stiff neck. Patient denies any allergies or significant past medical history. MD Complaint: cough, rhinorrhea, nasal congestion -: days(s) Severity scale (0 -10): 0 Improves With: nothing Worsens With: nothing Associated Symptoms: rhinorrhea, nasal congestion, cough. denies: fever, chills, myalgias, diaphoresis, headache, sore throat, stiff neck, chest pain, shortness of breath, abdominal pain, nausea, vomiting, diarrhea, dysuria, rash, confusion, right sweats, weight loss, epistaxis, hoarseness, ear pain Treatments Prior to Arrival: none - Related Data Previous Rx's Medication Instructions Recorded Last Taken Type raNITIdine HCl [Zantac 150 MG TAB] 150 mg PO BID #60 tablet 07/15/15 Unknown Rx Albuterol Sulfate [Proventil Hfa] 2 puff IH Q4HR PRN #1 hfa.aer.ad 06/10/19 Unknown Rx Butalb/Acetamin/Caff 50-325-40 1 each PO Q4H PRN #15 tablet 12/27/20 Unknown Rx [Fioricet 50-325-40] Fluticasone [Flonase] 2 spray NS QDAY #1 bottle 12/27/20 Unknown Rx Loratadine [Claritin] 10 mg PO DAILY #30 tablet 12/27/20 Unknown Rx Meclizine [Antivert] 25 mg PO TID PRN #20 tablet 12/27/20 Unknown Rx Benzonatate [Tessalon Perles] 100 mg PO Q8HR PRN #12 cap 09/04/21 Unknown Rx Allergies Allergy/AdvReac Type Severity Reaction Status Date / Time No Known Allergies Allergy Verified 12/27/20 11:19 ED Review of Systems ROS: Stated complaint: BODY PAIN/CHILLS Other details as noted in HPI Comment: All other systems reviewed and negative Constitutional: denies: chills, fever Eyes: denies: eye pain, eye discharge, vision change ENT: congestion. denies: ear pain, throat pain Respiratory: cough. denies: shortness of breath, wheezing Cardiovascular: denies: chest pain, palpitations Endocrine: no symptoms reported Gastrointestinal: denies: abdominal pain, nausea, diarrhea Genitourinary: denies: urgency, dysuria, discharge Musculoskeletal: denies: back pain, joint swelling, arthralgia Skin: denies: rash, lesions Neurological: denies: headache, weakness, paresthesias Psychiatric: denies: anxiety, depression Hematological/Lymphatic: denies: easy bleeding, easy bruising ED Past Medical Hx - Past Medical History Hx Headaches / Migraines: Yes Hx Asthma: Yes Additional medical history: Anemia, morbid obesity - Surgical History Additional Surgical History: C-Sections x 5, Tubaligation - Social History Smoking Status: Never Smoker Substance Use Type: None - Medications Home Medications: Home Medications Medication Instructions Recorded Confirmed Last Taken Type raNITIdine HCl [Zantac 150 MG TAB] 150 mg PO BID #60 tablet 07/15/15 Unknown Rx Albuterol Sulfate [Proventil Hfa] 2 puff IH Q4HR PRN #1 hfa.aer.ad 06/10/19 Unknown Rx Butalb/Acetamin/Caff 50-325-40 1 each PO Q4H PRN #15 tablet 12/27/20 Unknown Rx [Fioricet 50-325-40] Fluticasone [Flonase] 2 spray NS QDAY #1 bottle 12/27/20 Unknown Rx Loratadine [Claritin] 10 mg PO DAILY #30 tablet 12/27/20 Unknown Rx Meclizine [Antivert] 25 mg PO TID PRN #20 tablet 12/27/20 Unknown Rx Benzonatate [Tessalon Perles] 100 mg PO Q8HR PRN #12 cap 09/04/21 Unknown Rx ED Physical Exam - General Limitations: No Limitations General appearance: alert, in no apparent distress - Head Head exam: Present: atraumatic, normocephalic - Eye Eye exam: Present: normal appearance - ENT ENT exam: Present: normal exam, normal orophraynx - Neck Neck exam: Present: normal inspection, full ROM. Absent: tenderness, meningismus, lymphadenopathy - Respiratory Respiratory exam: Present: normal lung sounds bilaterally. Absent: respiratory distress, wheezes, rales, rhonchi, stridor, chest wall tenderness, accessory muscle use, decreased breath sounds, prolonged expiratory - Cardiovascular Cardiovascular Exam: Present: regular rate, normal rhythm, normal heart sounds. Absent: bradycardia, tachycardia, irregular rhythm, systolic murmur, diastolic murmur, rubs, gallop - Extremities Exam Extremities exam: Present: full ROM - Back Exam Back exam: Present: full ROM - Neurological Exam Neurological exam: Present: alert, oriented X3, normal gait - Psychiatric Psychiatric exam: Present: normal affect, normal mood - Skin Skin exam: Present: warm, dry, intact, normal color. Absent: rash ED Course Vital Signs 09/04/21 08:39 Temperature 98.3 F Pulse Rate 89 Respiratory 16 Rate Blood Pressure 114/81 [Left] O2 Sat by Pulse 94 Oximetry - Reevaluation(s) Reevaluation #1: 09/04/21 13:59 Patient is speaking in full sentences with no signs of distress noted. ED Medical Decision Making - Radiology Data [address] [address] XRay Report Signed Patient: RAMÓN MISTRY MR#: [id number] : 1985 Acct:[id number] Age/Sex: 36 / F ADM Date: 09/04/21 Loc: ED Attending Dr: Ordering Physician: RIP RED Date of Service: 09/04/21 Procedure(s): XR chest routine 2V Accession Number(s): [id number] cc: RIP RED Fluoro Time In Minutes: CHEST 2 VIEWS INDICATION / CLINICAL INFORMATION: cough. COMPARISON: 06/10/2019 FINDINGS: SUPPORT DEVICES: None. HEART / MEDIASTINUM: No significant abnormality. LUNGS / PLEURA: No significant pulmonary or pleural abnormality. No pneumothorax. ADDITIONAL FINDINGS: No significant additional findings. IMPRESSION: 1. No acute findings. Signer Name: Demond Johnson MD Signed: 09/04/2021 11:17 AM Workstation Name: SAM Transcribed By: BRAYDON Dictated By: Demond Johnson MD Electronically Authenticated By: Demond Johnson MD Signed Date/Time: 09/04/211116 DD/ 16 TD/TT: - Medical Decision Making This is a 36-year-old female that presents with viral resp symptoms. Patient is stable and was examined by me. Chest x-ray has been obtained and dictated by radiologist with normal exam. Patient is notified of x-ray results with no questions noted. Patient does not meet clinical concerns of COVID-19 but patient was instructed and educated on signs and symptoms and to self quarantine and seek medical attention as soon as possible if symptoms does occur. Patient was instructed to increase hydration, rest and take Motrin for fever episodes. Patient received tesslone perrls in the ED. Vitals stable. Patient is nonfebrile and normal heart rate. Patient was instructed Follow-up with a primary care doctor in 3-5 days or if symptoms worsen and continue return to emergency room as soon as possible. At time time of discharge, the patient does not seem toxic or ill in appearance. No acute signs of distress noted. Patient agrees to discharge treatment plan of care. No further questions noted by the patient.nt. Critical care attestation.: If time is entered above; I have spent that time in minutes in the direct care of this critically ill patient, excluding procedure time. ED Disposition Clinical Impression: Viral respiratory illness Disposition: HOME / SELF CARE / HOMELESS Is pt being admited?: No Does the pt Need Aspirin: No Condition: Stable Instructions: Viral Respiratory Infection, [id number] Additional Instructions: Follow-up with a primary care doctor in 3-5 days or if symptoms worsen and continue return to emergency room as soon as possible. Your symptoms appear most consistent with a nonspecific viral syndrome. However, given this current pandemic, COVID-19 is in the differential of possibilities. Despite your previous negative COVID-19 test, I do recommend repeat outpatient Covid 19 testing. In the meantime, isolate/quarantine yourself and stay away from anyone who is elderly, immunocompromised or chronically ill. Please see your nearest health department or primary care doctor that you are referred to for COVID testing. Increased rest, hydration, and take [id number] Tylenol as directed from instructions label for pain/fever episode. Prescriptions: Benzonatate [Tessalon Perles] 100 mg PO Q8HR PRN #12 cap PRN Reason: Cough Referrals: PRIMARY CARE, [Referring] - 3-5 Days PEREZ URBAN MD [Staff Physician] - 3-5 Days Time of Disposition: 14:02
== END 2021-09-04 15:00 | disposition home or self-care (01) ==
LOC: ED 08:12
DX: B34.9 Viral infection, unspecified (principal); G43.909 Migraine, unspecified, not intractable, without status migrainosus; J45.909 Unspecified asthma, uncomplicated; D64.9 Anemia, unspecified; E66.01 Morbid (severe) obesity due to excess calories; Z98.890 Other specified postprocedural states
CPT/HCPCS: 71046; 99283

== ENCOUNTER 2021-11-28 01:37 | Emergency (ER) | payer OTHER ==
[2021-11-28 01:41] VITALS: BP 141/67
--- NOTE | 2021-11-28 04:27 | Emergency Department Report ---
ED General Adult HPI - General Chief complaint: Adult Asthma Stated complaint: asthma Time Seen by Provider: 11/28/21 04:11 Source: patient, EMS Mode of arrival: Stretcher Limitations: No Limitations - History of Present Illness Initial comments: Patient 36-year-old -[place] female history of asthma and obesity. Patient states wheezing for the past 3 to 4 days. Symptoms are less exacerbated by environmental exposure. Symptoms are relieved by nothing. Patient states out of albuterol inhaler however she has not had to use it in some years. There is been no fevers no chills no nausea no vomiting no chest pain no lightheadedness no dizziness. Patient is alert oriented x3 ambulaatory with steady gait and with no acute distress. Severity scale (0 -10): 0 - Related Data Previous Rx's Medication Instructions Recorded Last Taken Type raNITIdine HCl [Zantac 150 MG TAB] 150 mg PO BID #60 tablet 07/15/15 Unknown Rx Albuterol Sulfate [Proventil Hfa] 2 puff IH Q4HR PRN #1 hfa.aer.ad 06/10/19 Unknown Rx Butalb/Acetamin/Caff 50-325-40 1 each PO Q4H PRN #15 tablet 12/27/20 Unknown Rx [Fioricet 50-325-40] Fluticasone [Flonase] 2 spray NS QDAY #1 bottle 12/27/20 Unknown Rx Loratadine [Claritin] 10 mg PO DAILY #30 tablet 12/27/20 Unknown Rx Meclizine [Antivert] 25 mg PO TID PRN #20 tablet 12/27/20 Unknown Rx Benzonatate [Tessalon Perles] 100 mg PO Q8HR PRN #12 cap 09/04/21 Unknown Rx Albuterol Mdi (or & Nicu Only) 2 puff IH QID PRN #8.5 gram 11/28/21 Unknown Rx [ProAir HFA Inhaler] guaiFENesin [Guaifenesin] 400 mg PO Q6H PRN #20 tab 11/28/21 Unknown Rx predniSONE [Deltasone] 40 mg PO QDAY 5 Days #10 tab 11/28/21 Unknown Rx Allergies Allergy/AdvReac Type Severity Reaction Status Date / Time No Known Allergies Allergy Verified 12/27/20 11:19 ED Review of Systems ROS: Stated complaint: asthma Other details as noted in HPI Constitutional: denies: chills, fever, malaise Eyes: denies: eye pain, eye discharge, vision change ENT: congestion Respiratory: cough, shortness of breath, wheezing Cardiovascular: denies: chest pain, palpitations Endocrine: no symptoms reported Gastrointestinal: denies: abdominal pain, nausea, vomiting, diarrhea Genitourinary: denies: urgency, dysuria, discharge Musculoskeletal: denies: back pain, joint swelling, arthralgia Skin: denies: rash, lesions Neurological: denies: headache, weakness, paresthesias Psychiatric: denies: anxiety, depression Hematological/Lymphatic: denies: easy bleeding, easy bruising ED Past Medical Hx - Past Medical History Hx Headaches / Migraines: Yes Hx Asthma: Yes Additional medical history: Anemia, morbid obesity - Surgical History Additional Surgical History: C-Sections x 5, Tubaligation - Social History Smoking Status: Never Smoker Substance Use Type: None - Medications Home Medications: Home Medications Medication Instructions Recorded Confirmed Last Taken Type raNITIdine HCl [Zantac 150 MG TAB] 150 mg PO BID #60 tablet 07/15/15 Unknown Rx Albuterol Sulfate [Proventil Hfa] 2 puff IH Q4HR PRN #1 hfa.aer.ad 06/10/19 Unknown Rx Butalb/Acetamin/Caff 50-325-40 1 each PO Q4H PRN #15 tablet 12/27/20 Unknown Rx [Fioricet 50-325-40] Fluticasone [Flonase] 2 spray NS QDAY #1 bottle 12/27/20 Unknown Rx Loratadine [Claritin] 10 mg PO DAILY #30 tablet 12/27/20 Unknown Rx Meclizine [Antivert] 25 mg PO TID PRN #20 tablet 12/27/20 Unknown Rx Benzonatate [Tessalon Perles] 100 mg PO Q8HR PRN #12 cap 09/04/21 Unknown Rx Albuterol Mdi (or & Nicu Only) 2 puff IH QID PRN #8.5 gram 11/28/21 Unknown Rx [ProAir HFA Inhaler] guaiFENesin [Guaifenesin] 400 mg PO Q6H PRN #20 tab 11/28/21 Unknown Rx predniSONE [Deltasone] 40 mg PO QDAY 5 Days #10 tab 11/28/21 Unknown Rx ED Physical Exam - General Limitations: No Limitations General appearance: alert, in no apparent distress - Head Head exam: Present: normocephalic, normal inspection - Eye Eye exam: Present: PERRL, EOMI Pupils: Present: normal accommodation - ENT ENT exam: Present: normal orophraynx, mucous membranes moist. Absent: TM's normal bilaterally, normal external ear exam - Neck Neck exam: Present: normal inspection, full ROM. Absent: tenderness, lymphadenopathy - Respiratory Respiratory exam: Present: normal lung sounds bilaterally. Absent: respiratory distress, wheezes, rales, rhonchi, stridor, chest wall tenderness - Cardiovascular Cardiovascular Exam: Present: regular rate, normal rhythm, normal heart sounds. Absent: systolic murmur, diastolic murmur, rubs, gallop - GI/Abdominal GI/Abdominal exam: Present: soft, normal bowel sounds. Absent: distended, tenderness - Rectal Rectal exam: Present: deferred - External exam: Present: normal external exam - Extremities Exam Extremities exam: Present: normal inspection, full ROM, normal capillary refill. Absent: tenderness - Back Exam Back exam: Present: normal inspection, full ROM. Absent: tenderness, CVA tenderness (R), CVA tenderness (L) - Neurological Exam Neurological exam: Present: alert, oriented X3, CN II-XII intact, normal gait, reflexes normal. Absent: motor sensory deficit - Psychiatric Psychiatric exam: Present: normal affect, normal mood - Skin Skin exam: Present: warm, dry, intact, normal color. Absent: rash ED Course Vital Signs 11/28/21 01:39 Temperature 98.1 F Pulse Rate 92 H Respiratory 16 Rate Blood Pressure 141/67 [Right] O2 Sat by Pulse 99 Oximetry ED Medical Decision Making - Medical Decision Making Sounds are clear throughout at this time patient is ambulated from room and bathroom and back to room without increased shortness of breath. Patient appears well-nourished well-hydrated and nontoxic. Plan refill medications as requested for air short burst prednisone, follow-up with primary care doctor return to emergency department should symptoms worsen Critical care attestation.: If time is entered above; I have spent that time in minutes in the direct care of this critically ill patient, excluding procedure time. ED Disposition Clinical Impression: Asthma Qualifiers: Asthma severity: moderate Asthma persistence: unspecified Asthma complication type: unspecified Qualified Code(s): J45.909 - Unspecified asthma, uncomplicated Disposition: 01 HOME / SELF CARE / HOMELESS Is pt being admited?: No Does the pt Need Aspirin: No Condition: Stable Instructions: Asthma (ED), Asthma and Physical Activity Additional Instructions: Take medication as prescribed, follow-up with your primary care doctor in 2 to 3 days. Return to emergency department should symptoms worsen. Prescriptions: predniSONE [Deltasone] 40 mg PO QDAY 5 Days #10 tab guaiFENesin [Guaifenesin] 400 mg PO Q6H PRN #20 tab PRN Reason: Cough Albuterol Mdi (or & Nicu Only) [ProAir HFA Inhaler] 2 puff IH QID PRN #8.5 gram PRN Reason: Shortness Of Breath Referrals: INEZ CONNOLLY MD [Staff Physician] - 3-5 Days Forms: Work/School Release Form(ED) Time of Disposition: 04:40
== END 2021-11-28 04:59 | disposition home or self-care (01) ==
LOC: ED 01:37
DX: J45.909 Unspecified asthma, uncomplicated (principal); G43.909 Migraine, unspecified, not intractable, without status migrainosus; Z98.51 Tubal ligation status; Z98.890 Other specified postprocedural states; Z79.899 Other long term (current) drug therapy
CPT/HCPCS: 99283

== ENCOUNTER 2021-12-16 14:56 | Emergency (ER) | payer OTHER ==
[2021-12-16 15:30] VITALS: BP 130/85
== END 2021-12-16 20:00 | disposition left against medical advice (07) ==
LOC: ED 14:56
DX: R51.9 Headache, unspecified (principal); M79.18 Myalgia, other site; Z53.21 Procedure and treatment not carried out due to patient leaving prior to being seen by health care provider